=== PATIENT | female | born 1985 | race Caucasian/White ===

== ENCOUNTER 2021-07-12 10:57 | Emergency (ER) | payer BC ==
[~2021-07-12] VITALS: Ht 170.2 cm; Wt 82.9 kg
[2021-07-12 11:43] VITALS: BP 111/63
[2021-07-12 12:24] LABS: BASOPHILS % (AUTO) 0.2 % (0-1); EOSINOPHILS % (AUTO) 0.4 % (0-6); HEMOGLOBIN 11.7 g/dl (12.0-16.0); LYMPHOCYTES # (AUTO) 0.9 X10'3 (1.1-4.8); LYMPHOCYTES % (AUTO) 8.6 % (21-51); MEAN CORPUSCULAR HEMOGLOBIN 30.6 PG (27.0-31.0); MEAN CORPUSCULAR HGB CONC 33.5 g/dL (33.0-36.5); MEAN CORPUSCULAR VOLUME 91.5 FL (78-98); MEAN PLATELET VOLUME 8.7 FL (7.4-10.4); MONOCYTES % (AUTO) 9.1 % (2-12); NEUTROPHILS # (AUTO) 8.9 X10'3 (1.8-7.7); NEUTROPHILS % (AUTO) 81.7 % (42-75); PLATELET COUNT 275 X10'3 (140-440); RED BLOOD COUNT 3.82 X10'6 (4.20-5.60); RED CELL DISTRIBUTION WIDTH 14.5 % (11.5-14.5); WHITE BLOOD COUNT 10.9 X10'3 (4.5-11.0)
[2021-07-12 12:29] LABS: ALANINE AMINOTRANSFERASE 15 U/L (12-78); ALBUMIN 3.3 G/DL (3.4-5.0); ALKALINE PHOSPHATASE 54 IU/L (46-116); ANION GAP 9 (8-16); ASPARTATE AMINO TRANSFERASE 13 U/L (10-37); BILIRUBIN,TOTAL 0.6 MG/DL (0.1-1.0); BLOOD UREA NITROGEN 9 MG/DL (7-18); BUN/CREATININE RATIO 12.9 (6.6-38.0); CHLORIDE 104 MMOL/L (99-107); GLUCOSE 95 MG/DL (70-104); LIPASE < 50 U/L (73-393); POTASSIUM 3.3 MMOL/L (3.5-5.1); SODIUM 140 MMOL/L (135-145); TOTAL CARBON DIOXIDE 26.6 MMOL/L (24-32); TOTAL PROTEIN 6.5 G/DL (6.4-8.2); eGFR > 90 ML/MIN
[2021-07-12] MEDS ORDERED: potassium chloride 10mEq ER tablet PO SCH (12:45)
[2021-07-12] MEDS ORDERED: traMADol 50MG tablet PO ONE (12:45)
[2021-07-12] MEDS ORDERED: TRAM50TA2 PO (12:46)
[2021-07-12] MEDS ORDERED: ONDA4TAB12 PO (12:46)
--- NOTE | 2021-07-12 13:05 | NUR ---
Pt given and understands d/c instructions. Ambulatory with a steady gait.
[2021-07-12 13:14] LABS: CLARITY,URINE CLOUDY (Clear); COLOR,URINE YELLOW (Yellow); GLUCOSE, URINE NEGATIVE (Neg); KETONES,URINE NEGATIVE (Neg); LEUKOCYTE ESTERASE ,URINE LARGE (Neg); NITRITES, URINE NEGATIVE (Neg); OCCULT BLOOD,URINE NEGATIVE (Neg); PROTEIN,URINE NEGATIVE (Neg); UROBILINOGEN,URINE 0.2 E.U/dL (0.2-1.0)
[2021-07-12 13:15] LABS: UA COLLECTION TYPE CLN CATCH MIDSTREAM
[2021-07-12 13:16] LABS: URINE HCG NEGATIVE (NEG)
[2021-07-12 13:21] LABS: RBC,URINE 0-2 /HPF (0-2)
[2021-07-12 13:22] LABS: BACTERIA,URINE 2+ /HPF (Neg); SQUAMOUS EPITHELIAL CELL,UR MANY /LPF (FEW)
== END 2021-07-12 13:05 | disposition home or self-care (01) ==
LOC: ER 10:57
DX: K80.20 Calculus of gallbladder without cholecystitis without obstruction (principal); Z88.5 Allergy status to narcotic agent; Z79.899 Other long term (current) drug therapy
CPT/HCPCS: 36415; 80053; 81001; 81025; 83690; 85025; 99283